=== PATIENT | female | born 1945 | race Caucasian/White ===

== ENCOUNTER 2021-08-06 07:00 | Day surgery (SDC) | payer MEDICARE, OTHER ==
[~2021-08-06] VITALS: Ht 165.1 cm; Wt 71.0 kg
[2021-08-06] VITALS (12 sets, daily range): BP systolic 98–126; BP diastolic 48–62
[2021-08-06] MEDS ORDERED: LIDOcaine 1%/PF 5ML 10 MG/ML VIAL SQ ONE (07:35)
[2021-08-06] MEDS ORDERED: LETR2.5T7 PO (07:44)
[2021-08-06] MEDS ORDERED: LEVO112T5 PO (07:44)
[2021-08-06] MEDS ORDERED: FLUO-84 PO (07:44)
[2021-08-06] MEDS ORDERED: POTA10CA44 PO (07:44)
[2021-08-06] MEDS ORDERED: ALLO100T PO (07:44)
[2021-08-06] MEDS ORDERED: FURO20TA4 PO (07:44)
[2021-08-06] MEDS ORDERED: OMEP20CA16 PO (07:44)
[2021-08-06] MEDS ORDERED: albumin (human) 25% 100 ML IV solution IV ONE (09:40)
== END 2021-08-06 11:15 | disposition home or self-care (01) ==
LOC: SSTAY O 07:00
PROVIDERS: ATTEND Preventive Medicine Aerospace Medicine
DX: R18.8 Other ascites (principal); J90 Pleural effusion, not elsewhere classified; E03.9 Hypothyroidism, unspecified; Z85.3 Personal history of malignant neoplasm of breast; Z87.891 Personal history of nicotine dependence; Z72.89 Other problems related to lifestyle; Z79.899 Other long term (current) drug therapy
CPT/HCPCS: 32555; 49083; J3490; P9047

== ENCOUNTER 2021-10-24 08:29 | Inpatient (IN) | payer MEDICARE, OTHER ==
[~2021-10-24] VITALS: Ht 165.1 cm; Wt 67.5 kg
[~2021-10-24 08:29] MED LIST: ALLO100T PO; FLUO-84 PO; FURO20TA4 PO; LETR2.5T7 PO; LEVO112T5 PO; OMEP20CA16 PO; POTA10CA44 PO; etomidate 2mg/ml inj. ONE; rocuronium 10mg/ml inj IV ONE; sodium bicarbonate (8.4%) 1 mEq/ml syringe ONE
[2021-10-24 09:57] LABS: BASOPHILS # (AUTO) 0.1 X10'3 (0-0.2); BASOPHILS % (AUTO) 1.4 % (0-1); EOSINOPHILS % (AUTO) 0.6 % (0-6); HEMATOCRIT 27.7 % (35.0-45.0); HEMOGLOBIN 9.4 g/dl (12.0-16.0); LYMPHOCYTES # (AUTO) 0.4 X10'3 (1.1-4.8); MEAN CORPUSCULAR HEMOGLOBIN 31.7 PG (27.0-31.0); MEAN CORPUSCULAR HGB CONC 33.9 g/dL (33.0-36.5); MEAN CORPUSCULAR VOLUME 93.4 FL (78-98); MEAN PLATELET VOLUME 7.7 FL (7.4-10.4); MONOCYTES # (AUTO) 0.6 X10'3 (0-0.9); MONOCYTES % (AUTO) 11.7 % (2-12); NEUTROPHILS # (AUTO) 3.7 X10'3 (1.8-7.7); NEUTROPHILS % (AUTO) 78.3 % (42-75); PLATELET COUNT 167 X10'3 (140-440); RED BLOOD COUNT 2.97 X10'6 (4.20-5.60); RED CELL DISTRIBUTION WIDTH 15.4 % (11.5-14.5); WHITE BLOOD COUNT 4.8 X10'3 (4.5-11.0)
[2021-10-24 10:13] LABS: ALANINE AMINOTRANSFERASE 14 U/L (12-78); ALBUMIN 2.2 G/DL (3.4-5.0); ALBUMIN/GLOBULIN RATIO 0.4 (1.1-1.5); ALKALINE PHOSPHATASE 88 IU/L (46-116); ANION GAP 5 (8-16); ASPARTATE AMINO TRANSFERASE 70 U/L (10-37); BILIRUBIN,TOTAL 4.3 MG/DL (0.1-1.0); BLOOD UREA NITROGEN 8 MG/DL (7-18); BUN/CREATININE RATIO 8.4 (6.6-38.0); CALCIUM 8.7 MG/DL (8.5-10.1); CHLORIDE 98 MMOL/L (99-107); CREATININE 0.95 MG/DL (0.40-0.90); POTASSIUM 3.9 MMOL/L (3.5-5.1); SODIUM 132 MMOL/L (135-145); TOTAL PROTEIN 8.3 G/DL (6.4-8.2); eGFR 57 ML/MIN
[2021-10-24 10:35] LABS: GLUCOSE 99 MG/DL (70-104)
[2021-10-24] MEDS ORDERED: iohexol 300mg/ml 100ml inj. ONE (12:52)
[2021-10-24 13:21] LABS: MAGNESIUM 1.3 MG/DL (1.5-2.4)
[2021-10-24] MEDS ORDERED: ondansetron/PF 4mg/2ml inj IV ONE (17:10)
[2021-10-24] MEDS ORDERED: normal saline 1000ML IV soln IVB ONE (17:10)
[2021-10-24] MEDS ORDERED: magnesium oxide 400mg tablet PO ONE (17:20)
--- NOTE | 2021-10-24 18:14 | NUR ---
Attempted to ambulate pt, unable to even get out of bed without maximum assistance
[2021-10-24] MEDS ORDERED: magnesium hydroxide 30ml (MOM) UD suspension PO PRN (20:30)
[2021-10-24] MEDS ORDERED: ondansetron 4mg rapidly disintigrating tab PO PRN (20:30)
[2021-10-24] MEDS ORDERED: diphenhydrAMINE 50 mg/ml inj IV PRN (20:30)
[2021-10-24] MEDS ORDERED: LORazepam 1 MG tablet PO PRN (20:30)
[2021-10-24] MEDS ORDERED: diphenhydrAMINE 25mg capsule PO PRN (20:30)
[2021-10-24] MEDS ORDERED: haloperidol 5mg tablet PO PRN (20:30)
[2021-10-24] MEDS ORDERED: ondansetron/PF 4mg/2ml inj IV PRN (20:30)
[2021-10-24] MEDS ORDERED: bisacodyl 10mg suppository rectal RC PRN (20:30)
[2021-10-24] MEDS ORDERED: HYDROcodone/acetaminophen 10/325mg tab PO PRN (20:30)
[2021-10-24] MEDS ORDERED: HYDROcodone/acetaminophen 5mg/325mg tablet PO PRN (20:30)
[2021-10-24] MEDS ORDERED: magnesium 2GM in 50ml NS 50 ML IV PRN (20:30)
[2021-10-24] MEDS ORDERED: LORazepam 2 mg/ml vial IV PRN (20:30)
[2021-10-24] MEDS ORDERED: haloperidol lactate 5mg/ml inj IM PRN (20:30)
[2021-10-24] MEDS: normal saline 1000ml 1,000 ML IV SCH (20:30)
[2021-10-24] MEDS ORDERED: acetaminophen 650mg rectal suppository RC PRN (20:30)
[2021-10-24] MEDS ORDERED: magnesium Cl slow-release 64mg tablet PO PRN (20:30)
[2021-10-24] MEDS ORDERED: mag hydrox/Alum hydrox/simeth 30ml oral suspension PO PRN (20:30)
[2021-10-24] MEDS ORDERED: acetaminophen 325mg tablet PO PRN ×2 (20:30)
[2021-10-24] MEDS ORDERED: magnesium 4gm in 100ml NS 100 ML IV PRN (20:30)
[2021-10-24] MEDS ORDERED: morphine 2 MG/ML inj. syringe IV PRN ×2 (20:30)
[2021-10-24] MEDS ORDERED: HYDROmorphone inj. 0.5 MG/0.5 ML DISP.SYRIN IV PRN (20:30)
[2021-10-24 20:57] LABS: HEMOGLOBIN A1C 4.2 % (4.5-6.2)
[2021-10-24] MEDS ORDERED: temazepam 15mg capsule PO PRN (21:00)
[2021-10-24] MEDS ORDERED: BUPR-317 PO (21:01)
[2021-10-24] MEDS ORDERED: GABA-530 PO (21:01)
[2021-10-24 21:05] LABS: PHOSPHORUS 2.6 MG/DL (2.3-4.5)
[2021-10-24] MEDS: thiamine 100mg/ml 2ml inj. IV SCH (21:14)
[2021-10-24 21:19] LABS: APTT 34 SECONDS (22-32); D-DIMER 14.06 MG/L FEU (0-0.50)
[2021-10-24 21:23] LABS: CREATINE KINASE 13 U/L (26-192); LIPASE 50 U/L (73-393)
[2021-10-25 00:03] LABS: CLARITY,URINE CLEAR (Clear); GLUCOSE, URINE NEGATIVE (Neg); KETONES,URINE TRACE mg/dl (Neg); LEUKOCYTE ESTERASE ,URINE NEGATIVE (Neg); NITRITES, URINE NEGATIVE (Neg); OCCULT BLOOD,URINE NEGATIVE (Neg); PH,URINE 6.5 (4.8-8.0); PROTEIN,URINE 30 mg/dl (Neg)
[2021-10-25 00:09] LABS: URINE AMPHETAMINE SCREEN NEGATIVE (Neg); URINE BARBITUATE SCREEN NEGATIVE (Neg); URINE BENZODIAZEPINES SCREEN NEGATIVE (Neg); URINE CANNABINOID SCREEN NEGATIVE (Neg); URINE COCAINE SCREEN NEGATIVE (Neg); URINE METHADONE SCREEN NEGATIVE (Neg); URINE OPIATE SCREEN NEGATIVE (Neg); URINE PHENCYCLIDINE SCREEN NEGATIVE (Neg)
[2021-10-25 00:15] LABS: UA COLLECTION TYPE URINAL
[2021-10-25 00:17] LABS: BACTERIA,URINE FEW /HPF (Neg); RBC,URINE 0-2 /HPF (0-2); SQUAMOUS EPITHELIAL CELL,UR FEW /LPF (FEW); WBC,URINE 0-4 /HPF (0-4)
[2021-10-25 00:18] LABS: COLOR,URINE DARK YELLOW (Yellow)
[2021-10-25] MEDS: FLUoxetine 20mg capsule PO SCH ×2 (08:00→08:48)
[2021-10-25 08:29] LABS: HEMATOCRIT 28.4 % (35.0-45.0); WHITE BLOOD COUNT 5.6 X10'3 (4.5-11.0)
[2021-10-25 08:31] LABS: HEMOGLOBIN 9.4 g/dl (12.0-16.0); MEAN CORPUSCULAR HGB CONC 33.2 g/dL (33.0-36.5); MEAN CORPUSCULAR VOLUME 93.4 FL (78-98); MEAN PLATELET VOLUME 7.9 FL (7.4-10.4); PLATELET COUNT 168 X10'3 (140-440); RED BLOOD COUNT 3.05 X10'6 (4.20-5.60); RED CELL DISTRIBUTION WIDTH 15.5 % (11.5-14.5)
[2021-10-25] MEDS: folic acid 1mg/0.2ml inj IV SCH (08:47)
[2021-10-25] MEDS: CefTRIAXone/D5W-Rocephin 1gm 50 ML IV SCH (08:47)
[2021-10-25] MEDS: docusate sod 100mg capsule PO SCH ×2 (08:48→20:00)
[2021-10-25] MEDS: pantoprazole 40mg Tablet.DR PO SCH (08:48)
[2021-10-25] MEDS: furosemide 10 MG/1 ML 10ml inj IV SCH (08:48)
[2021-10-25] MEDS: thiamine 100mg/ml 2ml inj. IV SCH ×3 (08:48→22:29)
[2021-10-25] MEDS: allopurinol 100mg tablet PO SCH (08:48)
[2021-10-25] MEDS: buPROPion SR 150mg tablet PO SCH (08:49)
[2021-10-25] MEDS: levoTHYROXINE 112mcg tablet PO SCH (08:49)
[2021-10-25 08:58] LABS: ALANINE AMINOTRANSFERASE 9 U/L (12-78); ALBUMIN 2.1 G/DL (3.4-5.0); ALBUMIN/GLOBULIN RATIO 0.4 (1.1-1.5); ALKALINE PHOSPHATASE 84 IU/L (46-116); ANION GAP 7 (8-16); ASPARTATE AMINO TRANSFERASE 64 U/L (10-37); BILIRUBIN,TOTAL 4.1 MG/DL (0.1-1.0); BLOOD UREA NITROGEN 9 MG/DL (7-18); BUN/CREATININE RATIO 8.5 (6.6-38.0); CALCIUM 8.8 MG/DL (8.5-10.1); CHLORIDE 99 MMOL/L (99-107); CHOL/HDL RATIO 9.7 (0.00-4.99); CHOLESTEROL 242 MG/DL (0-200); CREATININE 1.06 MG/DL (0.40-0.90); HDL CHOLESTEROL 25 MG/DL (35-60); LDL CHOLESTEROL 158 MG/DL (50-100); MAGNESIUM 1.4 MG/DL (1.5-2.4); POTASSIUM 3.9 MMOL/L (3.5-5.1); SODIUM 133 MMOL/L (135-145); TOTAL CARBON DIOXIDE 26.9 MMOL/L (24-32); TOTAL PROTEIN 8.1 G/DL (6.4-8.2); TRIGLYCERIDES 85 MG/DL (20-135); eGFR 50 ML/MIN
[2021-10-25 09:04] LABS: GLUCOSE 87 MG/DL (70-104)
[2021-10-25] MEDS ORDERED: iohexol 350MG/ML 100ml bottle IV ONE (09:15)
[2021-10-25] MEDS: azithromycin/NS 500mg/250ml 250 ML IV SCH (09:37)
--- NOTE | 2021-10-25 09:38 | NUR ---
Prozac on pt's med rec. Pt states she stopped it when she began Welbutrin.
[2021-10-25 10:05] LABS: TOTAL CELLS COUNTED 100
[2021-10-25 10:06] LABS: ANISOCYTOSIS 1+; PLATELET ESTIMATE NORMAL; TARGET CELLS 1+
[2021-10-25 10:07] LABS: POLYCHROMASIA FEW
--- NOTE | 2021-10-25 13:10 | NUR ---
Assisted pt to bedside commode to void. Full linen change and partial bed bath. Pure wick placed.
--- NOTE | 2021-10-25 21:45 | NUR ---
P I have received report from Mikey FARIAS and had the opportunity to ask questions and assume patient care.
[2021-10-25 22:00] VITALS: BP 110/46
[2021-10-25] MEDS: gabapentin 300mg capsule PO SCH (22:29)
[2021-10-25] MEDS: heparin, porcine 5000 units/ml vial SQ SCH (22:30)
[2021-10-26] VITALS (7 sets, daily range): BP systolic 82–110; BP diastolic 35–52
--- NOTE | 2021-10-26 06:27 | NUR ---
Patient in room PCU 3014. I have received report from Delores FARIAS and had the opportunity to ask questions and assume patient care.
--- NOTE | 2021-10-26 06:47 | NUR ---
Problems reprioritized. Patient report given, questions answered & plan of care reviewed with Sade FARIAS.
[2021-10-26 07:09] LABS: HEMOGLOBIN 9.2 g/dl (12.0-16.0); RED BLOOD COUNT 2.93 X10'6 (4.20-5.60); RED CELL DISTRIBUTION WIDTH 15.7 % (11.5-14.5); WHITE BLOOD COUNT 5.9 X10'3 (4.5-11.0)
[2021-10-26 07:11] LABS: HEMATOCRIT 27.6 % (35.0-45.0); MEAN CORPUSCULAR HEMOGLOBIN 31.5 PG (27.0-31.0); MEAN CORPUSCULAR HGB CONC 33.5 g/dL (33.0-36.5); MEAN CORPUSCULAR VOLUME 94.2 FL (78-98); MEAN PLATELET VOLUME 7.8 FL (7.4-10.4); PLATELET COUNT 162 X10'3 (140-440)
[2021-10-26 07:32] LABS: ALANINE AMINOTRANSFERASE 9 U/L (12-78); ALBUMIN 2.1 G/DL (3.4-5.0); ALBUMIN/GLOBULIN RATIO 0.4 (1.1-1.5); ALKALINE PHOSPHATASE 78 IU/L (46-116); ANION GAP 8 (8-16); ASPARTATE AMINO TRANSFERASE 55 U/L (10-37); BILIRUBIN,TOTAL 3.5 MG/DL (0.1-1.0); BLOOD UREA NITROGEN 10 MG/DL (7-18); BUN/CREATININE RATIO 8.3 (6.6-38.0); CALCIUM 8.9 MG/DL (8.5-10.1); CHLORIDE 101 MMOL/L (99-107); MAGNESIUM 1.4 MG/DL (1.5-2.4); POTASSIUM 3.6 MMOL/L (3.5-5.1); SODIUM 137 MMOL/L (135-145); TOTAL CARBON DIOXIDE 27.8 MMOL/L (24-32); TOTAL PROTEIN 7.7 G/DL (6.4-8.2); eGFR 44 ML/MIN
[2021-10-26 07:34] LABS: GLUCOSE 80 MG/DL (70-104)
[2021-10-26 07:37] LABS: TOTAL CELLS COUNTED 100
[2021-10-26 07:38] LABS: ANISOCYTOSIS 1+; PLATELET ESTIMATE NORMAL; POLYCHROMASIA FEW; TARGET CELLS FEW
[2021-10-26] MEDS: FLUoxetine 20mg capsule PO SCH (08:00)
[2021-10-26] MEDS: folic acid 1mg/0.2ml inj IV SCH (08:08)
[2021-10-26] MEDS: CefTRIAXone/D5W-Rocephin 1gm 50 ML IV SCH (08:08)
[2021-10-26] MEDS: thiamine 100mg/ml 2ml inj. IV SCH ×3 (08:09→21:39)
[2021-10-26] MEDS: furosemide 10 MG/1 ML 10ml inj IV SCH (08:09)
[2021-10-26] MEDS: allopurinol 100mg tablet PO SCH (08:10)
[2021-10-26] MEDS: pantoprazole 40mg Tablet.DR PO SCH (08:10)
[2021-10-26] MEDS: buPROPion SR 150mg tablet PO SCH (08:11)
[2021-10-26] MEDS: atorvastatin 20mg tablet PO SCH (08:11)
[2021-10-26] MEDS: levoTHYROXINE 112mcg tablet PO SCH (08:11)
[2021-10-26] MEDS: docusate sod 100mg capsule PO SCH ×2 (08:12→21:39)
[2021-10-26] MEDS: heparin, porcine 5000 units/ml vial SQ SCH ×2 (08:14→21:39)
[2021-10-26] MEDS: azithromycin/NS 500mg/250ml 250 ML IV SCH (09:45)
--- NOTE | 2021-10-26 13:56 | NUR ---
Malnutrition Consult: Pt admit DX bilateral PNA and pleural effusions, acute on chronic respiratory, hypothyroidism, heart failure, and hx prior thoracentesis as well as paracentesis per EMR. Pt hx T2DM per EMR though A1C 4.2% and no home DM meds likely error. Pt reports decreased intake w/ 2-13 pound wt loss 3 months [employer] per EMR. Pt seen by RD at bedside. Pt reports thoracentesis and paracentesis April or May of this year total 13L fluid removal w/ wt of 141 pounds following and most recent home wt 132.8 pounds [employer]. Pending scaled wt this admit though reported wt close at 135.3 pounds. Pt reports loss of appetite becoming full quickly w/ meals and has been forcing self to eat at home sometimes including Ensures WB. Pt has visible severe muscle/fat wasting to biceps/triceps and mild temporal wasting evident during RD visit. Given muscle/fat wasting and non-severe wt loss ~6% 6 months pt meets severe malnutrition criteria; DO notified. Pt agreeable to Ensure Enlive TIDWM this admit; DO notified. Pt reports no issues chewing/swallowing no assistance required w/ meals. RD provide pt w/ Ensure ONS coupons and encouraged pt to request RD if further nutrition questions/concerns this admit. Will monitor for further nutrition intervention needs this admit. Rec: 1. continue Na-restricted diet per DO; consider regular diet pending PO trends given malnutrition status 2. Ensure Enlive TIDWM; pending DO verification in EMR 3. thiamine, folic acid supplementation per physician; consider MVI supplementation given malnutrition status 4. routine bowel care 5. scaled wt this admit; subsequent weekly wts Addendum: 10/26/21 at [address] Amended: Links added.
[2021-10-26] MEDS: normal saline 1000ml 1,000 ML IV SCH ×2 (15:33→21:42)
[2021-10-26] MEDS: lactose-reduced food (Ensure Enlive) - 237ml bottle PO SCH (18:00)
[2021-10-26] MEDS: gabapentin 300mg capsule PO SCH (21:39)
[2021-10-27 02:00] VITALS: BP 98/46
[2021-10-27 06:00] VITALS: BP 112/46
--- NOTE | 2021-10-27 07:02 | NUR ---
Problems reprioritized. Patient report given, questions answered & plan of care reviewed with Dorota FARIAS.
[2021-10-27 07:20] LABS: HEMOGLOBIN 8.4 g/dl (12.0-16.0)
[2021-10-27 07:22] LABS: HEMATOCRIT 24.9 % (35.0-45.0); MEAN CORPUSCULAR HEMOGLOBIN 31.5 PG (27.0-31.0); MEAN CORPUSCULAR HGB CONC 33.8 g/dL (33.0-36.5); MEAN CORPUSCULAR VOLUME 93.1 FL (78-98); PLATELET COUNT 155 X10'3 (140-440); RED BLOOD COUNT 2.67 X10'6 (4.20-5.60); RED CELL DISTRIBUTION WIDTH 15.7 % (11.5-14.5)
[2021-10-27] MEDS: furosemide 10 MG/1 ML 10ml inj IV SCH (08:00)
[2021-10-27] MEDS: lactose-reduced food (Ensure Enlive) - 237ml bottle PO SCH ×3 (08:00→18:00)
[2021-10-27] MEDS: docusate sod 100mg capsule PO SCH ×2 (08:00→20:33)
[2021-10-27 08:02] LABS: ALANINE AMINOTRANSFERASE 9 U/L (12-78); ALBUMIN/GLOBULIN RATIO 0.4 (1.1-1.5); ALKALINE PHOSPHATASE 78 IU/L (46-116); ANION GAP 9 (8-16); ASPARTATE AMINO TRANSFERASE 55 U/L (10-37); BILIRUBIN,TOTAL 2.8 MG/DL (0.1-1.0); BLOOD UREA NITROGEN 11 MG/DL (7-18); BUN/CREATININE RATIO 7.3 (6.6-38.0); CALCIUM 8.4 MG/DL (8.5-10.1); CHLORIDE 102 MMOL/L (99-107); MAGNESIUM 1.4 MG/DL (1.5-2.4); POTASSIUM 3.3 MMOL/L (3.5-5.1); SODIUM 138 MMOL/L (135-145); TOTAL CARBON DIOXIDE 27.4 MMOL/L (24-32); TOTAL PROTEIN 7.4 G/DL (6.4-8.2); eGFR 34 ML/MIN
[2021-10-27 08:05] LABS: GLUCOSE 113 MG/DL (70-104)
[2021-10-27] MEDS: CefTRIAXone/D5W-Rocephin 1gm 50 ML IV SCH (08:11)
[2021-10-27] MEDS: buPROPion SR 150mg tablet PO SCH (08:22)
[2021-10-27] MEDS: levoTHYROXINE 112mcg tablet PO SCH (08:23)
[2021-10-27] MEDS: atorvastatin 20mg tablet PO SCH (08:23)
[2021-10-27] MEDS: FLUoxetine 20mg capsule PO SCH (08:23)
[2021-10-27] MEDS: allopurinol 100mg tablet PO SCH (08:23)
[2021-10-27] MEDS: pantoprazole 40mg Tablet.DR PO SCH (08:23)
[2021-10-27 08:25] LABS: PLATELET ESTIMATE NORMAL; TOTAL CELLS COUNTED 100
[2021-10-27 08:27] LABS: STOMATOCYTES FEW; TARGET CELLS FEW
[2021-10-27] MEDS: heparin, porcine 5000 units/ml vial SQ SCH ×2 (08:29→20:34)
[2021-10-27] MEDS: mineral oil/petrolatum, white cream 113gm jar TP SCH ×2 (08:38→20:34)
[2021-10-27] MEDS: folic acid 1mg/0.2ml inj IV SCH (08:41)
[2021-10-27] MEDS: thiamine 100mg/ml 2ml inj. IV SCH ×2 (08:43→14:04)
[2021-10-27] MEDS: azithromycin/NS 500mg/250ml 250 ML IV SCH (08:44)
[2021-10-27] MEDS: ipratropium/albuterol 3ml nebule NEB PRN (10:38)
[2021-10-27 11:00] VITALS: BP 100/51
[2021-10-27] MEDS: normal saline 1000ml 1,000 ML IV SCH ×2 (14:05→23:10)
[2021-10-27 15:00] VITALS: BP 121/52
--- NOTE | 2021-10-27 18:30 | NUR ---
Patient in room PCU 3014. I have received report from AMA and had the opportunity to ask questions and assume patient care.
[2021-10-27 19:00] VITALS: BP 109/52
[2021-10-27] MEDS: gabapentin 300mg capsule PO SCH (20:33)
[2021-10-27 23:28] VITALS: BP 102/39
[2021-10-28 02:00] VITALS: BP 120/57
--- NOTE | 2021-10-28 02:00 | NUR ---
PT UNABLE TO VOID. BLADDER SCANNED FOR GREATER THAN [address] DE DIOS NOTIFIED OF ABOVE. ORDERS OBTAINED TO PLACE FC.
[2021-10-28 06:00] VITALS: BP 121/42
--- NOTE | 2021-10-28 06:30 | NUR ---
Problems reprioritized. Patient report given, questions answered & plan of care reviewed with BRIDGER.
[2021-10-28 06:37] LABS: HEMOGLOBIN 8.4 g/dl (12.0-16.0); MONOCYTES # (AUTO) 0.6 X10'3 (0-0.9)
[2021-10-28 06:42] LABS: BASOPHILS # (AUTO) 0.1 X10'3 (0-0.2); EOSINOPHILS % (AUTO) 0.6 % (0-6); HEMATOCRIT 24.8 % (35.0-45.0); LYMPHOCYTES # (AUTO) 0.7 X10'3 (1.1-4.8); LYMPHOCYTES % (AUTO) 11.4 % (21-51); MEAN CORPUSCULAR HEMOGLOBIN 31.5 PG (27.0-31.0); MEAN CORPUSCULAR HGB CONC 33.8 g/dL (33.0-36.5); MEAN CORPUSCULAR VOLUME 93.2 FL (78-98); MEAN PLATELET VOLUME 7.5 FL (7.4-10.4); MONOCYTES % (AUTO) 9.6 % (2-12); NEUTROPHILS # (AUTO) 4.9 X10'3 (1.8-7.7); NEUTROPHILS % (AUTO) 77.4 % (42-75); PLATELET COUNT 152 X10'3 (140-440); RED BLOOD COUNT 2.67 X10'6 (4.20-5.60); RED CELL DISTRIBUTION WIDTH 15.8 % (11.5-14.5); WHITE BLOOD COUNT 6.4 X10'3 (4.5-11.0)
[2021-10-28 07:02] LABS: ALANINE AMINOTRANSFERASE 9 U/L (12-78); ALBUMIN/GLOBULIN RATIO 0.4 (1.1-1.5); ALKALINE PHOSPHATASE 78 IU/L (46-116); ANION GAP 7 (8-16); ASPARTATE AMINO TRANSFERASE 57 U/L (10-37); BILIRUBIN,TOTAL 2.4 MG/DL (0.1-1.0); BLOOD UREA NITROGEN 10 MG/DL (7-18); BUN/CREATININE RATIO 6.9 (6.6-38.0); CALCIUM 8.2 MG/DL (8.5-10.1); CHLORIDE 106 MMOL/L (99-107); CREATININE 1.44 MG/DL (0.40-0.90); MAGNESIUM 1.2 MG/DL (1.5-2.4); POTASSIUM 3.5 MMOL/L (3.5-5.1); SODIUM 140 MMOL/L (135-145); TOTAL CARBON DIOXIDE 26.9 MMOL/L (24-32); TOTAL PROTEIN 7.4 G/DL (6.4-8.2); eGFR 35 ML/MIN
[2021-10-28 07:21] LABS: GLUCOSE 109 MG/DL (70-104)
--- NOTE | 2021-10-28 07:22 | NUR ---
PAGER ID: [phone] MESSAGE: FAVIO LAYTON 3014A MG 1.2 THIS AM, NO PROTOCOL REPLACEMENT ORDERED THANK YOU BRIDGER FARIAS
[2021-10-28] MEDS: heparin, porcine 5000 units/ml vial SQ SCH ×3 (08:00→21:25)
[2021-10-28] MEDS: buPROPion SR 150mg tablet PO SCH (08:14)
[2021-10-28] MEDS: pantoprazole 40mg Tablet.DR PO SCH (08:14)
[2021-10-28] MEDS: FLUoxetine 20mg capsule PO SCH (08:14)
[2021-10-28] MEDS: allopurinol 100mg tablet PO SCH (08:14)
[2021-10-28] MEDS: atorvastatin 20mg tablet PO SCH (08:14)
[2021-10-28] MEDS: CefTRIAXone/D5W-Rocephin 1gm 50 ML IV SCH (08:14)
[2021-10-28] MEDS: levoTHYROXINE 112mcg tablet PO SCH (08:14)
[2021-10-28] MEDS: azithromycin/NS 500mg/250ml 250 ML IV SCH (08:14)
[2021-10-28] MEDS: lactose-reduced food (Ensure Enlive) - 237ml bottle PO SCH ×4 (08:15→17:36)
[2021-10-28] MEDS: docusate sod 100mg capsule PO SCH ×2 (08:15→21:25)
[2021-10-28] MEDS: mineral oil/petrolatum, white cream 113gm jar TP SCH ×2 (08:15→21:25)
[2021-10-28] MEDS: normal saline 1000ml 1,000 ML IV SCH ×2 (08:46→19:29)
[2021-10-28] MEDS ORDERED: LIDOcaine 1%/PF 5ML 10 MG/ML VIAL ONE (10:22)
[2021-10-28 15:00] VITALS: BP 110/51
--- NOTE | 2021-10-28 17:46 | NUR ---
PAGER ID: [phone] MESSAGE: FAVIO HOOVER LAYTON RM 0803S VERY CONCENCTRATED VERY LOW URINE OUTPUT. REMINDER WELL MG IS LOW, NO REPLACEMENT ORDERED THANK YOU BRIDGER FARIAS
--- NOTE | 2021-10-28 18:15 | NUR ---
Patient in room PCU 3014. I have received report from BRIDGER and had the opportunity to ask questions and assume patient care.
--- NOTE | 2021-10-28 18:40 | NUR ---
DR DE DIOS PAGED: UO 100 ML IN 12 HOURS, INCREASED SOB, PT NOW REQUIRING 4L OF OXYGEN WITH A SATURATION OF 92%
[2021-10-28 19:00] VITALS: BP 113/50
--- NOTE | 2021-10-28 19:05 | NUR ---
NO RETURN CALL FROM DR DE DIOS. DR SOUZA PAGED: UO 100 ML IN 12 HOURS, INCREASED SOB RR 28, PT NOW ON 4L OXYGEN WITH AN O2 SATURATION OF 92%. BP 113/50, HR 96. ORDERS OBTAINED FOR LASIX X 1.
[2021-10-28] MEDS ORDERED: furosemide 20 MG/2 ML vial IV ONE (19:15)
[2021-10-28] MEDS: gabapentin 300mg capsule PO SCH (21:25)
[2021-10-28] MEDS ORDERED: potassium Cl 20 mEq SR tablet PO PRN ×2 (21:40)
[2021-10-28] MEDS ORDERED: magnesium Cl slow-release 64mg tablet PO PRN (21:40)
[2021-10-28] MEDS ORDERED: magnesium 4gm in 100ml NS 100 ML IV PRN (21:40)
[2021-10-28] MEDS ORDERED: magnesium 2GM in 50ml NS 50 ML IV PRN (21:40)
[2021-10-28] MEDS ORDERED: potassium CL 10mEq/100ml bag 100 ML IV PRN (21:40)
[2021-10-28 22:30] VITALS: BP 141/60
[2021-10-29] VITALS (8 sets, daily range): BP systolic 10–136; BP diastolic 42–64
[2021-10-29] MEDS: ipratropium/albuterol 3ml nebule NEB PRN (01:17)
[2021-10-29] MEDS: normal saline 1000ml 1,000 ML IV SCH ×2 (04:46→16:40)
--- NOTE | 2021-10-29 06:16 | NUR ---
Problems reprioritized. Patient report given, questions answered & plan of care reviewed with BRIDGER.
[2021-10-29 07:14] LABS: BASOPHILS # (AUTO) 0.1 X10'3 (0-0.2); BASOPHILS % (AUTO) 0.5 % (0-1); EOSINOPHILS % (AUTO) 0.1 % (0-6); HEMATOCRIT 25.8 % (35.0-45.0); HEMOGLOBIN 8.7 g/dl (12.0-16.0); LYMPHOCYTES # (AUTO) 0.3 X10'3 (1.1-4.8); LYMPHOCYTES % (AUTO) 3.2 % (21-51); MEAN CORPUSCULAR HEMOGLOBIN 31.4 PG (27.0-31.0); MEAN CORPUSCULAR HGB CONC 33.8 g/dL (33.0-36.5); MEAN CORPUSCULAR VOLUME 92.9 FL (78-98); MONOCYTES # (AUTO) 0.9 X10'3 (0-0.9); MONOCYTES % (AUTO) 9.7 % (2-12); NEUTROPHILS # (AUTO) 8.3 X10'3 (1.8-7.7); NEUTROPHILS % (AUTO) 86.5 % (42-75); PLATELET COUNT 151 X10'3 (140-440); RED BLOOD COUNT 2.78 X10'6 (4.20-5.60); RED CELL DISTRIBUTION WIDTH 15.8 % (11.5-14.5); WHITE BLOOD COUNT 9.7 X10'3 (4.5-11.0)
[2021-10-29 07:27] LABS: ALANINE AMINOTRANSFERASE 18 U/L (12-78); ALBUMIN 2.1 G/DL (3.4-5.0); ALBUMIN/GLOBULIN RATIO 0.4 (1.1-1.5); ALKALINE PHOSPHATASE 109 IU/L (46-116); ANION GAP 9 (8-16); ASPARTATE AMINO TRANSFERASE 72 U/L (10-37); BILIRUBIN,TOTAL 2.5 MG/DL (0.1-1.0); BLOOD UREA NITROGEN 10 MG/DL (7-18); BUN/CREATININE RATIO 7.4 (6.6-38.0); CALCIUM 8.5 MG/DL (8.5-10.1); CHLORIDE 102 MMOL/L (99-107); CREATININE 1.36 MG/DL (0.40-0.90); MAGNESIUM 3.1 MG/DL (1.5-2.4); SODIUM 137 MMOL/L (135-145); TOTAL CARBON DIOXIDE 26.3 MMOL/L (24-32); TOTAL PROTEIN 8.1 G/DL (6.4-8.2); eGFR 38 ML/MIN
[2021-10-29 07:31] LABS: GLUCOSE 134 MG/DL (70-104)
[2021-10-29] MEDS: azithromycin/NS 500mg/250ml 250 ML IV SCH (08:22)
[2021-10-29] MEDS: CefTRIAXone/D5W-Rocephin 1gm 50 ML IV SCH (08:22)
[2021-10-29] MEDS: allopurinol 100mg tablet PO SCH (08:23)
[2021-10-29] MEDS: atorvastatin 20mg tablet PO SCH (08:23)
[2021-10-29] MEDS: pantoprazole 40mg Tablet.DR PO SCH (08:23)
[2021-10-29] MEDS: levoTHYROXINE 112mcg tablet PO SCH (08:23)
[2021-10-29] MEDS: FLUoxetine 20mg capsule PO SCH (08:23)
[2021-10-29] MEDS: docusate sod 100mg capsule PO SCH ×2 (08:23→20:08)
[2021-10-29] MEDS: buPROPion SR 150mg tablet PO SCH (08:23)
[2021-10-29] MEDS: folic acid 1mg tablet PO SCH (08:24)
[2021-10-29] MEDS: K and/or MAG REPLACEMENT MC SCH ×2 (08:24→20:00)
[2021-10-29] MEDS: heparin, porcine 5000 units/ml vial SQ SCH ×2 (08:24→20:14)
[2021-10-29] MEDS: thiamine 100mg tablet PO SCH (08:24)
[2021-10-29] MEDS: mineral oil/petrolatum, white cream 113gm jar TP SCH ×2 (08:25→21:10)
[2021-10-29 11:27] LABS: BFSOURCE PLEURAL FLD; GLUCOSE,BODY FLUID 139 MG/DL; LDH,BODY FLUID 106 U/L; PLEURAL FLUID PH 7.457 (7.63-7.65); TOTAL PROTEIN,BODY FLUID 3.3 G/DL
[2021-10-29 11:34] LABS: BFAPPEAR HAZY; BFCOLOR OTHER; BFVOLUME 40 ML
[2021-10-29 11:35] LABS: BF MESOTHELIAL CELLS FEW; BF RBC COUNT 9900 /CU MM; BF WBC COUNT 900 /CU MM (0-1000); LYMPHOCYTES,BODY FLUID 87 %; MONOCYTES,BODY FLUID 5 %; NEUTROPHILS,BODY FLUID 8 %
[2021-10-29] MEDS: lactose-reduced food (Ensure Enlive) - 237ml bottle PO SCH ×2 (13:00→18:00)
[2021-10-29] MEDS: gabapentin 300mg capsule PO SCH (20:08)
--- NOTE | 2021-10-29 22:20 | NUR ---
RN received x ray result from radiologist stating that pt has 15% pneumothorax in her R side.MD keane was notified. He ordered for a new x-ray to be done
[2021-10-30] VITALS (10 sets, daily range): BP systolic 95–144; BP diastolic 43–70
[2021-10-30] MEDS: normal saline 1000ml 1,000 ML IV SCH ×3 (00:46→20:46)
--- NOTE | 2021-10-30 06:49 | NUR ---
pts f/catheter drained only about 150mls of bloody urine at the beginning of the shift.Early this morning bladder scan was done and 609mls was recorded.MD Florez was notified and He ordered that the catheter be changed.18fr was used but there was resistance so it didn't go through.Charge nurse had to use 20fr which went through after some resistance.Even though the catheter has been changed ,urine is still not draining.RN has given the report to the day nurse to monitor and notify the MD if its still not draining.
--- NOTE | 2021-10-30 06:51 | NUR ---
Patient in room PCU 3014A. I have received report from DINORA FENTON and had the opportunity to ask questions and assume patient care.
[2021-10-30 06:59] LABS: MAGNESIUM 2.5 MG/DL (1.5-2.4)
[2021-10-30] MEDS: heparin, porcine 5000 units/ml vial SQ SCH ×2 (08:00→22:32)
[2021-10-30] MEDS: azithromycin/NS 500mg/250ml 250 ML IV SCH (08:00)
[2021-10-30] MEDS: folic acid 1mg tablet PO SCH (08:00)
[2021-10-30] MEDS: pantoprazole 40mg Tablet.DR PO SCH (08:00)
[2021-10-30] MEDS: FLUoxetine 20mg capsule PO SCH (08:00)
[2021-10-30] MEDS: allopurinol 100mg tablet PO SCH (08:00)
[2021-10-30] MEDS: atorvastatin 20mg tablet PO SCH (08:00)
[2021-10-30] MEDS: thiamine 100mg tablet PO SCH (08:00)
[2021-10-30] MEDS: mineral oil/petrolatum, white cream 113gm jar TP SCH ×2 (08:00→22:51)
[2021-10-30] MEDS: lactose-reduced food (Ensure Enlive) - 237ml bottle PO SCH ×3 (08:00→18:00)
[2021-10-30] MEDS: levoTHYROXINE 112mcg tablet PO SCH (08:00)
[2021-10-30] MEDS: buPROPion SR 150mg tablet PO SCH (08:00)
[2021-10-30] MEDS: docusate sod 100mg capsule PO SCH ×2 (08:00→20:00)
[2021-10-30] MEDS: K and/or MAG REPLACEMENT MC SCH ×2 (08:00→20:00)
--- NOTE | 2021-10-30 08:17 | NUR ---
Reassessment: Pt continues on Sodium Restricted diet w/ low PO intake, mostly 0% of meals for the last 2 days. Pt also consuming ~25% of ONS, overall not meeting needs at this time. Given current malnutrition status, consider supplemental NG feeding if PO does not increase and within POC. Pt noted to be on 12L HFNC. LBM 10/24 receiving routine colace. Consider additional bowel care if MD agreeable as constipation may also be affecting PO trends. Will continue to monitor. Rec: 1. Liberalize to Regular diet 2. Ensure Enlive TIDWM 3. thiamine, folic acid supplementation per physician; consider MVI supplementation given malnutrition status 4. routine bowel care 5. scaled wt this admit; subsequent weekly wts 6. Consider supplemental TF if within POC Addendum: 10/30/21 at [address] Amended: Links added.
[2021-10-30 11:54] LABS: ABG BASE EXCESS -3.3 mmol/L (-2.0-2.0); ABG HCO3 23.5 mmol/L (22.0-26.0); ABG OXYGEN SATURATION 93.2 % (94-97); ABG PCO2 (T) 49.7 mmHg (32.0-45.0); ABG PO2 (T) 71.8 mmHg (75.0-100.0); ALLEN'S TEST POSITIVE; FCOHb 0.3 % (0.0-3.9); FLOW 15 L/min; FMetHb 0.2 % (0.0-1.5); FO2Hb 92.7 % (94-97); PATIENT TEMPERATURE 36.4
[2021-10-30] MEDS: CefTRIAXone/D5W-Rocephin 1gm 50 ML IV SCH (12:24)
[2021-10-30] MEDS ORDERED: LORazepam 2 mg/ml vial IV PRN (14:40)
[2021-10-30] MEDS ORDERED: furosemide 10 MG/1 ML 10ml inj IV ONE (17:00)
[2021-10-30 17:01] LABS: ABG BASE EXCESS -2.6 mmol/L (-2.0-2.0); ABG HCO3 23.8 mmol/L (22.0-26.0); ABG OXYGEN SATURATION 97.6 % (94-97); ABG PCO2 (T) 48.7 mmHg (32.0-45.0); ABG PO2 (T) 103.9 mmHg (75.0-100.0); ALLEN'S TEST POSITIVE; FCOHb 0.3 % (0.0-3.9); FMetHb 0.3 % (0.0-1.5); RESPIRATORY RATE 10 b/min; TIDAL VOLUME 494 mL; TOTAL HEMOGLOBIN 9.4 G/dl (12.0-16.0)
[2021-10-30] MEDS: piperacillin/tazo 3.375gm/50ml 50 ML IV SCH (18:58)
[2021-10-30] MEDS ORDERED: vancomycin 1,750 MG in NS 350ml IV soln IV ONE (19:00)
--- NOTE | 2021-10-30 19:25 | NUR ---
Problems reprioritized. Patient report given, questions answered & plan of care reviewed with DINORA FENTON.
[2021-10-30] MEDS: gabapentin 300mg capsule PO SCH (21:00)
--- NOTE | 2021-10-30 21:04 | NUR ---
md notified of pt's inability to be aroused by touch,sound or by name.Order was given to monitor
[2021-10-31] VITALS (26 sets, daily range): BP systolic 72–116; BP diastolic 19–44
[2021-10-31] MEDS ORDERED: normal saline 250ml IV soln 250 ML IV ONE (05:50)
[2021-10-31 06:14] LABS: ABG BASE EXCESS -9.8 mmol/L (-2.0-2.0); ABG HCO3 24.9 mmol/L (22.0-26.0); ABG PCO2 (T) 139.3 mmHg (32.0-45.0); ABG PO2 (T) 73.9 mmHg (75.0-100.0); FMetHb 0.4 % (0.0-1.5); FO2Hb 88.6 % (94-97); PATIENT TEMPERATURE 36.9; RESPIRATORY RATE 10 b/min; TOTAL HEMOGLOBIN 9.7 G/dl (12.0-16.0)
[2021-10-31 06:24] LABS: BASOPHILS # (AUTO) 0.1 X10'3 (0-0.2); BASOPHILS % (AUTO) 0.8 % (0-1); EOSINOPHILS % (AUTO) 0.1 % (0-6); LYMPHOCYTES # (AUTO) 0.6 X10'3 (1.1-4.8); LYMPHOCYTES % (AUTO) 5.2 % (21-51); MEAN PLATELET VOLUME 8.4 FL (7.4-10.4); MONOCYTES # (AUTO) 0.5 X10'3 (0-0.9); MONOCYTES % (AUTO) 4.2 % (2-12); NEUTROPHILS # (AUTO) 10.4 X10'3 (1.8-7.7); NEUTROPHILS % (AUTO) 89.7 % (42-75); PLATELET COUNT 167 X10'3 (140-440); RED BLOOD COUNT 2.85 X10'6 (4.20-5.60); RED CELL DISTRIBUTION WIDTH 16.5 % (11.5-14.5); WHITE BLOOD COUNT 11.6 X10'3 (4.5-11.0)
[2021-10-31 06:35] LABS: ALKALINE PHOSPHATASE 114 IU/L (46-116); MAGNESIUM 2.6 MG/DL (1.5-2.4)
[2021-10-31 06:36] LABS: ALANINE AMINOTRANSFERASE 95 U/L (12-78); ALBUMIN 1.8 G/DL (3.4-5.0); ANION GAP 8 (8-16); BLOOD UREA NITROGEN 16 MG/DL (7-18); CHLORIDE 110 MMOL/L (99-107); CREATININE 1.77 MG/DL (0.40-0.90); POTASSIUM 4.6 MMOL/L (3.5-5.1); SODIUM 142 MMOL/L (135-145); TOTAL CARBON DIOXIDE 23.9 MMOL/L (24-32); eGFR 28 ML/MIN
--- NOTE | 2021-10-31 06:42 | NUR ---
Around 45, pts condition changed with low b/p of 83/27,SO2 of 90 0n 100% bipap.RN notified charge nurse who confirmed pt's condition and notified MD..Respiratory therapist was notified for arterial blood gas test and labs drawn per MD's order.Pt was given bolus 250 mls of N/S.Pt still unresponsive has been transferred to icu for possible intubation.
[2021-10-31 06:56] LABS: ALBUMIN/GLOBULIN RATIO 0.3 (1.1-1.5); ASPARTATE AMINO TRANSFERASE 406 U/L (10-37); BILIRUBIN,TOTAL 2.6 MG/DL (0.1-1.0); CALCIUM 8.1 MG/DL (8.5-10.1); GLUCOSE 98 MG/DL (70-104); PHOSPHORUS 5.2 MG/DL (2.3-4.5); TOTAL PROTEIN 7.7 G/DL (6.4-8.2)
[2021-10-31 07:18] LABS: HEMOGLOBIN 9.1 g/dl (12.0-16.0)
[2021-10-31 07:19] LABS: HEMATOCRIT 27.1 % (35.0-45.0); MEAN CORPUSCULAR HGB CONC 33.5 g/dL (33.0-36.5); MEAN CORPUSCULAR VOLUME 93.1 FL (78-98)
[2021-10-31 07:20] LABS: MEAN CORPUSCULAR HEMOGLOBIN 31.2 PG (27.0-31.0)
[2021-10-31] MEDS: FLUoxetine 20mg capsule PO SCH (07:32)
[2021-10-31] MEDS: pantoprazole 40mg Tablet.DR PO SCH (07:32)
[2021-10-31] MEDS: levoTHYROXINE 112mcg tablet PO SCH (07:32)
[2021-10-31] MEDS: buPROPion SR 150mg tablet PO SCH (07:32)
[2021-10-31] MEDS: thiamine 100mg tablet PO SCH (07:32)
[2021-10-31] MEDS: atorvastatin 20mg tablet PO SCH (07:32)
[2021-10-31] MEDS: allopurinol 100mg tablet PO SCH (07:32)
[2021-10-31] MEDS: folic acid 1mg tablet PO SCH (07:32)
[2021-10-31] MEDS: lactose-reduced food (Ensure Enlive) - 237ml bottle PO SCH (07:33)
[2021-10-31] MEDS: docusate sod 100mg capsule PO SCH ×2 (07:33→20:00)
[2021-10-31 07:40] LABS: ABG BASE EXCESS -11.8 mmol/L (-2.0-2.0); ABG HCO3 23.4 mmol/L (22.0-26.0); ABG OXYGEN SATURATION 97.8 % (94-97); ABG PCO2 (T) 130.9 mmHg (32.0-45.0); ABG PO2 (T) 128.7 mmHg (75.0-100.0); ALLEN'S TEST POSITIVE; FCOHb 0.3 % (0.0-3.9); FMetHb 0.4 % (0.0-1.5); FO2Hb 97.1 % (94-97); PATIENT TEMPERATURE 36.1; RESPIRATORY RATE 25 b/min; TOTAL HEMOGLOBIN 10.4 G/dl (12.0-16.0)
[2021-10-31] MEDS: mineral oil/petrolatum, white cream 113gm jar TP SCH ×2 (08:00→20:00)
[2021-10-31] MEDS: K and/or MAG REPLACEMENT MC SCH ×2 (08:00→19:27)
[2021-10-31] MEDS: heparin, porcine 5000 units/ml vial SQ SCH ×2 (08:00→21:01)
[2021-10-31] MEDS ORDERED: DEXMEDETOMIDINE IN 0.9 % NACL 100 ML IV SCH (08:10)
[2021-10-31] MEDS: NORepinephrine 8mg/ 250ml NS 250 ML IV PRN ×6 (08:36→21:41)
[2021-10-31] MEDS: FENTANYL-0.9 % NACL/PF 100 ML IV PRN ×2 (08:37→16:51)
--- NOTE | 2021-10-31 08:45 | NUR ---
Patient brought to ICU via bed. Patient obtunded and unresponsive at time of arrival. Dr. Anthony (ER doctor) in ICU to help with intubation. Upon MD assessment, Dr. Hernández wanted to give the patient a chance on Bipap and made some changes to help increase the minute ventilation. After changes were made an ABG was drawn about 30 minutes later with only a slight improvement. At this time Dr. Haq had arrived and opted to intubate the patient. Patient was given 20 of Etomidate and intubated. Patient was then prepped for central line placement in the right internal jugular. Dr. Haq successfully placed the line and a chest xray was done showing proper placement of the ETT and CVL. Orders for Levophed, Fentanyl, and precedex received and placed.
[2021-10-31 09:39] LABS: ABG BASE EXCESS -10.5 mmol/L (-2.0-2.0); ABG HCO3 18.4 mmol/L (22.0-26.0); ABG OXYGEN SATURATION 99.2 % (94-97); ABG PCO2 (T) 54.9 mmHg (32.0-45.0); ABG PO2 (T) 150.8 mmHg (75.0-100.0); FCOHb 0.3 % (0.0-3.9); FMetHb 0.3 % (0.0-1.5); FO2Hb 98.6 % (94-97); PATIENT TEMPERATURE 36.7; PEEP 5 cm H2O; RESPIRATORY RATE 18 b/min; TIDAL VOLUME 400 mL; TOTAL HEMOGLOBIN 10.6 G/dl (12.0-16.0)
[2021-10-31 10:08] LABS: PLATELET ESTIMATE NORMAL; TOTAL CELLS COUNTED 100
[2021-10-31 10:09] LABS: ANISOCYTOSIS 1+; BURR CELLS FEW
[2021-10-31] MEDS: piperacillin/tazo 3.375gm/50ml 50 ML IV SCH ×3 (10:41→23:24)
[2021-10-31] MEDS: normal saline 1000ml 1,000 ML IV SCH ×2 (10:41→16:46)
[2021-10-31] MEDS: DEXMEDETOMIDINE IN 0.9 % NACL 100 ML IV SCH ×5 (10:42→23:27)
[2021-10-31] MEDS ORDERED: vasopressin inj. 40 UNIT in dextrose 5%-water 50ml 38 ML IV SCH (10:50)
--- NOTE | 2021-10-31 10:55 | NUR ---
Reassessment: Pt unresponsive this morning resulting in transfer to critical care unit and intubation. Pt pending OGT placement however EN not appropriate at this time as MAP has been in the 40s since intubation. Will place EN recommendations below for if expected prolonged intubation and pt to receive nutrition support. Per RN at critical care rounds pt with a pressure area to buttocks, pending wound care consult. LBM 10/24, previously receiving routine bowel care however had been held since 10/30 d/t change in patient's condition. Will continue to follow closely. Recommendations: 1. IF TF, continuous Vital AF with 70 mL/hr goal rate. Begin at 30 mL/hr and advance by 20 mL Q8H as tolerated to goal rate 2. IF TF, additional 100 mL water flush Q4H; monitor serum Na 3. IF TF, prealbumin q Thursday/; daily scaled weights 4. Routine Thiamine and Folic acid supplementation per physician; consider MVI supplementation given malnutrition status 5. Routine bowel care 6. Consider BSS with ST following extubation; recommend regular diet and possible supplemental TF given poor PO intake throughout LOS Addendum: 10/31/21 at [address] Amended: Links added.
--- NOTE | 2021-10-31 11:00 | NUR ---
Patient blood pressure remains with a very low diastolic and map below 60. Vasopressin order received from Dr. Haq and placed.
[2021-10-31] MEDS: vasopressin inj. 40 UNIT in normal saline 50ml IV soln 38 ML IV SCH (11:06)
--- NOTE | 2021-10-31 12:00 | NUR ---
Patient family took all belongings with them including patient's necklace.
[2021-10-31] MEDS ORDERED: LIDOcaine 1%/PF 5ML 10 MG/ML VIAL ONE (14:25)
[2021-10-31] MEDS: dextrose 50%-water 50ml dispensing syringe IV PRN ×2 (14:32→21:21)
--- NOTE | 2021-10-31 15:30 | NUR ---
IR bedside for a thoracentesis with Dr. Franklin
[2021-10-31] MEDS ORDERED: albumin (Human) 5% 250ml 250 ML IV ONE ×4 (16:10→21:25)
--- NOTE | 2021-10-31 16:30 | NUR ---
Dr. Haq informed of LA of 10 and of the 1100 ml taken off by IR from the thoracentesis. Dr. Haq ordered for 500 ml of 5% Albumin to be given.
[2021-10-31] MEDS ORDERED: vancomycin inj 500 MG in normal saline 100ml IV soln 100 ML IV SCH (20:00)
[2021-10-31] MEDS ORDERED: VANCOMYCIN 750MG IV in NS 250 ML IV SCH (20:00)
--- NOTE | 2021-10-31 20:43 | NUR ---
Notified Dr. Craven of the increase of the patient's lactic to 11. He stated to repeat the 500 cc bolus of 5% albumin.
[2021-10-31] MEDS: gabapentin 300mg capsule PO SCH (21:00)
[2021-11-01] VITALS (25 sets, daily range): BP systolic 92–117; BP diastolic 17–36
[2021-11-01] MEDS: NORepinephrine 8mg/ 250ml NS 250 ML IV PRN ×3 (00:04→04:14)
[2021-11-01] MEDS: vasopressin inj. 40 UNIT in normal saline 50ml IV soln 38 ML IV SCH (00:04)
[2021-11-01] MEDS: FENTANYL-0.9 % NACL/PF 100 ML IV PRN ×3 (00:05→14:11)
[2021-11-01] MEDS: dextrose 50%-water 50ml dispensing syringe IV PRN ×2 (01:55→08:36)
[2021-11-01] MEDS: DEXMEDETOMIDINE IN 0.9 % NACL 100 ML IV SCH ×4 (02:23→14:10)
[2021-11-01] MEDS: normal saline 1000ml 1,000 ML IV SCH ×2 (02:46→05:50)
--- NOTE | 2021-11-01 03:00 | NUR ---
S Addendum: 11/01/21 at 0400 by Dixon Gruber RN Patient in room [facility] 2012. I have received report from Leanna FARIAS and had the opportunity to ask questions and assume patient care.
[2021-11-01 03:13] LABS: ALANINE AMINOTRANSFERASE 204 U/L (12-78); ALBUMIN 2.2 G/DL (3.4-5.0); ALBUMIN/GLOBULIN RATIO 0.5 (1.1-1.5); ALKALINE PHOSPHATASE 77 IU/L (46-116); ANION GAP 24 (8-16); ASPARTATE AMINO TRANSFERASE 954 U/L (10-37); BILIRUBIN,TOTAL 3.5 MG/DL (0.1-1.0); BLOOD UREA NITROGEN 17 MG/DL (7-18); BUN/CREATININE RATIO 7.6 (6.6-38.0); CALCIUM 7.4 MG/DL (8.5-10.1); CHLORIDE 107 MMOL/L (99-107); CREATININE 2.24 MG/DL (0.40-0.90); MAGNESIUM 2.1 MG/DL (1.5-2.4); PHOSPHORUS 3.6 MG/DL (2.3-4.5); POTASSIUM 3.7 MMOL/L (3.5-5.1); SODIUM 143 MMOL/L (135-145); TOTAL PROTEIN 6.3 G/DL (6.4-8.2); eGFR 21 ML/MIN
--- NOTE | 2021-11-01 03:14 | NUR ---
Problems reprioritized. Patient report given, questions answered & plan of care reviewed with DINORA Metcalf.
[2021-11-01 03:18] LABS: GLUCOSE 140 MG/DL (70-104)
[2021-11-01 03:19] LABS: TOTAL CARBON DIOXIDE 12.5 MMOL/L (24-32)
[2021-11-01 03:48] LABS: ABG BASE EXCESS -18.8 mmol/L (-2.0-2.0); ABG HCO3 9.1 mmol/L (22.0-26.0); ABG OXYGEN SATURATION 94.7 % (94-97); ABG PO2 (T) 83.2 mmHg (75.0-100.0); ALLEN'S TEST POSITIVE; FCOHb 0.3 % (0.0-3.9); FMetHb 0.2 % (0.0-1.5); FO2Hb 94.2 % (94-97); PATIENT TEMPERATURE 36.3; PEEP 5 cm H2O; RESPIRATORY RATE 18 b/min; TIDAL VOLUME 400 mL; TOTAL HEMOGLOBIN 9.2 G/dl (12.0-16.0)
[2021-11-01 04:04] LABS: BASOPHILS # (AUTO) 0.1 X10'3 (0-0.2); BASOPHILS % (AUTO) 0.7 % (0-1); EOSINOPHILS # (AUTO) 0.8 X10'3 (0-0.9); EOSINOPHILS % (AUTO) 6.3 % (0-6); HEMATOCRIT 26.6 % (35.0-45.0); HEMOGLOBIN 8.4 g/dl (12.0-16.0); LYMPHOCYTES # (AUTO) 1.3 X10'3 (1.1-4.8); LYMPHOCYTES % (AUTO) 10.1 % (21-51); MEAN CORPUSCULAR HGB CONC 31.4 g/dL (33.0-36.5); MEAN CORPUSCULAR VOLUME 98.5 FL (78-98); MEAN PLATELET VOLUME 8.5 FL (7.4-10.4); MONOCYTES # (AUTO) 0.8 X10'3 (0-0.9); MONOCYTES % (AUTO) 6.4 % (2-12); NEUTROPHILS # (AUTO) 9.7 X10'3 (1.8-7.7); NEUTROPHILS % (AUTO) 76.5 % (42-75); PLATELET COUNT 127 X10'3 (140-440); RED BLOOD COUNT 2.71 X10'6 (4.20-5.60); RED CELL DISTRIBUTION WIDTH 16.4 % (11.5-14.5); WHITE BLOOD COUNT 12.7 X10'3 (4.5-11.0)
[2021-11-01 04:45] LABS: ANISOCYTOSIS 1+; PLATELET ESTIMATE NORMAL; TOTAL CELLS COUNTED 100
[2021-11-01 04:46] LABS: BURR CELLS 1+; POIKILOCYTOSIS 1+
[2021-11-01 04:47] LABS: HYPOCHROMASIA 2+
[2021-11-01] MEDS ORDERED: sodium bicarbonate (8.4%) inj. 100 MEQ in dextrose 5%-water 1,000 ML IV SCH (04:50)
[2021-11-01] MEDS ORDERED: sodium bicarbonate (8.4%) 1 mEq/ml syringe IV ONE (04:50)
[2021-11-01] MEDS ORDERED: NORepinephrine 32 MG in Normal Saline 250ml IV soln IV SCH (05:55)
[2021-11-01] MEDS: heparin, porcine 5000 units/ml vial SQ SCH (07:44)
[2021-11-01] MEDS: allopurinol 100mg tablet PO SCH (07:45)
[2021-11-01] MEDS: levoTHYROXINE 112mcg tablet PO SCH (07:45)
[2021-11-01] MEDS: pantoprazole 40mg Tablet.DR PO SCH (07:45)
[2021-11-01] MEDS: folic acid 1mg tablet PO SCH (07:45)
[2021-11-01] MEDS: atorvastatin 20mg tablet PO SCH (07:45)
[2021-11-01] MEDS: FLUoxetine 20mg capsule PO SCH (07:45)
[2021-11-01] MEDS: buPROPion SR 150mg tablet PO SCH (07:45)
[2021-11-01] MEDS: mineral oil/petrolatum, white cream 113gm jar TP SCH (07:46)
[2021-11-01] MEDS: thiamine 100mg tablet PO SCH (07:49)
[2021-11-01] MEDS: piperacillin/tazo 3.375gm/50ml 50 ML IV SCH (07:49)
[2021-11-01] MEDS: docusate sod 100mg capsule PO SCH (08:00)
[2021-11-01] MEDS ORDERED: piperacillin/tazo 3.375gm/50ml 50 ML IV SCH (14:17)
[2021-11-01] MEDS ORDERED: vancomycin/NS 1 GM ADD-VANTAGE 250 ML IV PRN (14:25)
--- NOTE | 2021-11-01 16:09 | NUR ---
[facility]. Meeting: Met with Dr. Hawkins and pts and family. They agreed to comfort care and one [facility] member will stay until she passes after they say their goodbyes.
[2021-11-01] MEDS ORDERED: morphine 2 MG/ML inj. syringe IV PRN (16:25)
--- NOTE | 2021-11-01 17:00 | NUR ---
RN IS TO DOCUMENT YES TO ALL APPLICABLE AREAS Pronouncement of : 1. Time Physician Notified: Dr. Hawkins 2. Date of : 11/01/21 3. Time of : 1655 4. DNR/Withdraw life support documented: Yes 5. Monitor strip has been placed on chart: Yes 6. Assessment process is of one-minute duration and includes following criteria: a) Patient is unresponsive to all stimuli: Yes b) Pupils fixed and non-reactive: Yes c) Auscultation of precordium reveals absence of heart tones: Yes d) Auscultation of lungs reveals absence of breath sounds: Yes e) Absence of blood pressure / all vital signs: Yes f) QRS complexes are not present on monitor / EKG strip: Yes g) Pacer spikes without capture: NA 4. Comments: Daughter Nori stayed with pt, signed forms needed, thanked us for the care and left.
--- NOTE | 2021-11-01 17:23 | NUR ---
Extubation note Pt was extubated at 1645 by RT with my assistance and IVs discontinued. Nori, fam member, was at bedside. After about 10 minutes, pt had no signs of life. Nori asked to watch the monitor through this process mathew she has an EMT background & is planning on becoming an RN. she said her good byes and left after several minutes. MD & CN notified.
[2021-11-01] MEDS ORDERED: docusate sodium 100mg/10ml UD cup PO SCH (20:00)
[2021-11-03] MEDS ORDERED: VANCOMYCIN LEVEL IV SCH (03:00)
== END 2021-11-01 16:56 | DRG 871 ==
LOC: ER 08:29 → ED HOLD 20:34 → PCU 3S 10-25 20:50 → CICU 2S 10-31 06:33
PROVIDERS: ADMIT Family Medicine; ATTEND Family Medicine
PROC: 0W993ZZ Drainage of Right Pleural Cavity, Percutaneous Approach (ICD-10-PCS; 2021-10-24)
PROC: B32T1ZZ Computerized Tomography (CT Scan) of Left Pulmonary Artery using Low Osmolar Contrast (ICD-10-PCS; 2021-10-25)
PROC: B3201ZZ Computerized Tomography (CT Scan) of Thoracic Aorta using Low Osmolar Contrast (ICD-10-PCS; 2021-10-25)
PROC: B32S1ZZ Computerized Tomography (CT Scan) of Right Pulmonary Artery using Low Osmolar Contrast (ICD-10-PCS; 2021-10-25)
PROC: 0W993ZX Drainage of Right Pleural Cavity, Percutaneous Approach, Diagnostic (ICD-10-PCS; 2021-10-29)
PROC: 5A09357 Assistance with Respiratory Ventilation, Less than 24 Consecutive Hours, Continuous Positive Airway Pressure (ICD-10-PCS; principal; 2021-10-30)
PROC: 0W9930Z Drainage of Right Pleural Cavity with Drainage Device, Percutaneous Approach (ICD-10-PCS; 2021-10-30)
PROC: 3E1K38Z Irrigation of Genitourinary Tract using Irrigating Substance, Percutaneous Approach (ICD-10-PCS; 2021-10-30)
PROC: 5A09357 Assistance with Respiratory Ventilation, Less than 24 Consecutive Hours, Continuous Positive Airway Pressure (ICD-10-PCS; 2021-10-31)
PROC: 5A1935Z Respiratory Ventilation, Less than 24 Consecutive Hours (ICD-10-PCS; 2021-10-31)
PROC: 0BH17EZ Insertion of Endotracheal Airway into Trachea, Via Natural or Artificial Opening (ICD-10-PCS; 2021-10-31)
PROC: 0W9B3ZX Drainage of Left Pleural Cavity, Percutaneous Approach, Diagnostic (ICD-10-PCS; 2021-10-31)
DX: A41.9 Sepsis, unspecified organism (principal); I50.23 Acute on chronic systolic (congestive) heart failure; J18.9 Pneumonia, unspecified organism; J96.21 Acute and chronic respiratory failure with hypoxia; E87.1 Hypo-osmolality and hyponatremia; G93.40 Encephalopathy, unspecified; J44.0 Chronic obstructive pulmonary disease with (acute) lower respiratory infection; N17.9 Acute kidney failure, unspecified; J94.8 Other specified pleural conditions; J91.8 Pleural effusion in other conditions classified elsewhere; E87.4 Mixed disorder of acid-base balance; E88.09 Other disorders of plasma-protein metabolism, not elsewhere classified; Z20.822 Contact with and (suspected) exposure to COVID-19; E86.1 Hypovolemia; D64.9 Anemia, unspecified; E87.6 Hypokalemia; K80.20 Calculus of gallbladder without cholecystitis without obstruction; E83.42 Hypomagnesemia; E78.5 Hyperlipidemia, unspecified; E78.00 Pure hypercholesterolemia, unspecified; R74.01 Elevation of levels of liver transaminase levels; I95.9 Hypotension, unspecified; F32.A Depression, unspecified; F41.9 Anxiety disorder, unspecified; Z66 Do not resuscitate; K21.9 Gastro-esophageal reflux disease without esophagitis; R94.6 Abnormal results of thyroid function studies; E03.9 Hypothyroidism, unspecified; M10.9 Gout, unspecified; N18.9 Chronic kidney disease, unspecified; R62.7 Adult failure to thrive; Z85.3 Personal history of malignant neoplasm of breast; Z87.891 Personal history of nicotine dependence; Z92.21 Personal history of antineoplastic chemotherapy; Z99.81 Dependence on supplemental oxygen; Z79.899 Other long term (current) drug therapy; R31.9 Hematuria, unspecified; Z51.5 Encounter for palliative care; Z68.24 Body mass index [BMI] 24.0-24.9, adult
CPT/HCPCS: 32555; 32557; 36415; 36600; 71045; 71260; 71275; 74177; 76700; 76882; 77012; 80053; 80061; 81001; 81003; 82550; 82803; 82945; 82948; 83036; 83605; 83615; 83690; 83735; 83880; 83986; 84100; 84132; 84145; 84157; 84439; 84443; 84480; 84484; 85007; 85018; 85025; 85379; 85610; 85730; 87040; 87070; 87075; 87081; 87635; 89051; 92508; 92616; 93005; 93306; 94002; 94003; 94640; 94660; 94760; 97110; 97116; 97161; 97530; 99285; A4314; A4357; A4421; A5200; A6213; A6258; A6449; C1729; C1751; C1769; C9803; G0378; J0456; J0696; J1644; J1940; J2060; J2405; J2543; J3010; J3370; J3411; J3475; J3490; J7030; J7040; J7050; J7070; J8999; P9045; Q9967